=== PATIENT | female | born 2000 | race Caucasian/White ===

== ENCOUNTER 2021-02-26 07:00 | Emergency (ER) | payer BC ==
[~2021-02-26] VITALS: Ht 172.7 cm; Wt 114.0 kg
[2021-02-26 07:01] VITALS: BP 148/80
[2021-02-26] MEDS ORDERED: IBUP200C25 PO (07:23)
[2021-02-26] MEDS ORDERED: NS 1,000 ML IV ONE (07:30)
[2021-02-26] MEDS ORDERED: KETOROLAC 30 MG/ML 1ML VIAL IV ONE (07:30)
[2021-02-26 08:03] LABS: BASO % 0.4 % (0.0-1.0); EOS # 0.2 10^3/uL (0.0-0.5); EOS % 2.1 % (0.0-3.0); HEMATOCRIT 43.3 % (36.0-47.0); HEMOGLOBIN 14.6 g/dl (12.0-15.5); LYMPH # 2.1 10^3/uL (1.5-5.0); LYMPH % 18.6 % (24.0-44.0); MEAN CORPUSCULAR HEMOGLOBIN 30.5 pg (27.0-33.0); MEAN CORPUSCULAR HGB CONC 33.7 g/dl (32.0-36.5); MEAN CORPUSCULAR VOLUME 90.4 fl (80.0-96.0); MONO # 0.7 10^3/uL (0.0-0.8); MONO % 6.6 % (2.0-8.0); NEUTROPHILS # 8.1 10^3/uL (1.5-8.5); NEUTROPHILS % 71.9 % (36.0-66.0); PLATELET COUNT, AUTOMATED 255 10^3/uL (150-450); RED BLOOD COUNT 4.79 10^6/uL (4.00-5.40); WHITE BLOOD COUNT 11.3 10^3/uL (4.0-10.0)
[2021-02-26 08:29] LABS: ALBUMIN 3.8 GM/DL (3.2-5.2); ALT/SGPT 25 U/L (12-78); BILIRUBIN,DIRECT < 0.1 MG/DL (0.0-0.2); BILIRUBIN,TOTAL 0.4 MG/DL (0.2-1.0); TOTAL PROTEIN 6.7 GM/DL (6.4-8.2)
--- NOTE | 2021-02-26 08:38 | REP ---
INDICATION: inc pain post d. COMPARISON: None TECHNIQUE: Trans abdominal only FINDINGS: The uterus measures 9.6 x 5.3 x 5.9 cm. The parenchymal echo pattern is within normal limits. The endometrial echo complex measures 1.6 cm in thickness and appears to be within normal limits. Right ovary measures 2.8 x 1.8 x 2.2 cm and is within normal limits. Left ovary measures 2.8 x 1.9 x 2.9 cm and is within normal limits. The urinary bladder is empty. There is no free fluid. IMPRESSION: Within normal limits <Electronically signed by Alber Sneed > 02/26/21 [id number]
== END 2021-02-26 08:40 | disposition left against medical advice (07) ==
LOC: M ED 07:00
DX: G89.18 Other acute postprocedural pain (principal); R10.2 Pelvic and perineal pain; Z53.9 Procedure and treatment not carried out, unspecified reason; F17.200 Nicotine dependence, unspecified, uncomplicated; Z88.1 Allergy status to other antibiotic agents